=== PATIENT | male | born 1995 | race Asian ===

== ENCOUNTER 2025-03-11 09:34 | Day surgery (SDC) | payer SELFPAY ==
[2025-03-11] VITALS (12 sets, daily range): BP systolic 97–123; BP diastolic 67–96; PULSE 66–80; RESP 16; TEMP 36–37.2; O2SAT 94–98; BMI 28.2
--- NOTE | 2025-03-11 10:15 | CRLHL7_ITS ---
For Patients: As a result of the Cures Act, medical imaging exams and procedure reports are released immediately into your electronic medical record. You may view this report before your referring provider. If you have questions, please contact your health care provider. Indication: Nail gun injury Technique: Three views right knee Comparison: None Findings/Impression: A metal foreign body is present consistent with the given history of nail gun injury. This is within the soft tissues of the right knee anteromedially. Nail extends along the medial border of the patella although without clear intraosseous involvement. Associated mild soft tissue swelling. Dictated by Twin Magaña MD @ 03/11/2025 11:16:25 AM (Electronically Signed)
[2025-03-11] MEDS: CEFAZOLIN 1 GM in 0.9 % SODIUM CHLORIDE Mini-bag 100 ML IVPB (10:27)
[2025-03-11] MEDS: BUPIVACAINE 0.25% 30 ML INJECTION ×2 (10:29→12:32)
--- NOTE | 2025-03-11 11:10 | ED_ITS ---
HPI - General Adult General Date Seen: 03/11/25 Chief complaint: Skin/Abscess/Foreign Body Stated complaint: right leg- shot it with nail gun Time Seen by Provider: 03/11/25 09:53 History of Present Illness HPI narrative: This is a pleasant generally healthy 29-year-old male accompanied to the ER this morning by his co-worker. He has a foreign body (a large nail) in the skin and soft tissue in potentially in the joint space of his right knee. The injury occurred this morning while at work just prior to arrival. He was building some pallets when he had some trouble with the cord on his pneumatic Nailer. He was trying to adjust the cord with and malar accidentally went off and drove a nail into his right knee. He had immediate onset of pain. Ever since then he has had trouble flexing extending his knee. Not much bleeding. He is generally healthy. No history of diabetes or asthma or immunosuppression. He thinks his most recent tetanus shot was perhaps 5 or 10 years ago, but he cannot remember for sure. He is not completely sure he is up today. No other injuries. No numbness or tingling or weakness in his lower leg. No pulsatile bleeding. He last ate a peanut butter jelly sandwich at about 630 this morning, about 4 hours prior to arrival. He drink water at about 730. Related Data Home Medications ?Medication ?Instructions ?Recorded ?Confirmed No Known Home Medications 03/11/2503/02 Allergies Allergy/AdvReac Type Severity Reaction Status Date / Time shellfish derived Allergy Unknown Verified 03/11/25 09:43 [facility] Social History Smoking Status: Former smoker How often do you have a drink containing alcohol: 2-3 times a week How often do you have six or more drinks on one occasion: Never AUDIT-C Alcohol total score: 3 Non-prescribed substance use: denies use Exam Narrative: Exam Narrative: Constitutional: Appears well-developed and well-nourished. Alert. Conversant and he is trying to be positive and joking with his co-worker. He looks very uncomfortable. HENT: Head: Atraumatic. Nose: Nose normal. Mouth/Throat: Oral mucosa is clear and moist. no trismus. Pharynx normal. Eyes: Conjunctivae normal. EOM normal. Pupils equal, round, and reactive to light. No scleral icterus. Neck: Normal range of motion. Neck supple. No tracheal deviation present. Cardiovascular: Normal rate, regular rhythm. No gallop. No friction rub. No murmur heard. Symmetric PT artery pulses Pulmonary/Chest: Effort normal. No stridor. No respiratory distress. No wheezes. No rales. No rhonchi . No tenderness. Abdominal: Soft. No distension. No mass. No tenderness. No rebound. No guarding. Musculoskeletal: RUE: Normal range of motion. No tenderness. No deformity LUE: Normal range of motion. No tenderness. No deformity RLE: On injured except for the right knee. There is a knee present puncture the through the skin of the distal thigh a few cm superior to the patient's patella. The tip of the nail then punctures out where through the skin on the anterior knee which appears to be just lateral to or possibly touching the lateral side of the patella. No active bleeding. This skin is tented at the head of the nail. The knee is flexed at approximately 80-90 degrees. The patient cannot flex or extend it more than fiber 10? from that position. There is some swelling around the knee, in particular around the exit site where the point of the nail is protruding out through the skin. Otherwise no injuries to the right lower extremity. LLE: Normal range of motion. No edema. No tenderness. No deformity Lymph: No cervical adenopathy. Neurological: Alert and oriented to person, place, and time. Normal strength. CN II-VII intact. No sensory deficit. GCS eye subscore is 4. GCS verbal subscore is 5. GCS motor subscore is 6. Normal coordination Skin: Skin is warm and dry. No rash noted. No pallor. Normal capillary refill. Psychiatric: Normal mood. Normal affect. Const: Vital Signs, click to edit/add: Vital Signs - 24 hr 03/11/25 09:41 03/11/25 11:05 Temperature 96.8 F L Pulse Rate [Pulse Oximeter] 80 75 Respiratory Rate 16 16 Blood Pressure [Ri ght Upper Arm] 120/86 106/69 Pulse Oximetry 97 97 Oxygen Delivery Me thod Room Air Room Air Course Vital Signs Vital signs: Initial Vital Signs Temperature 96.8 F L 03/11/25 09:41 Temperature Source Temporal Artery Scan 03/11/25 09:41 Pulse Rate 80 03/11/25 09:41 Respiratory Rate 16 03/11/25 09:41 Blood Pressure 120/86 03/11/25 09:41 Blood Pressure Mean 97 03/11/25 09:41 Blood Pressure Position Supine 03/11/25 09:41 Pulse Oximetry 97 03/11/25 09:41 Oxygen Delivery Method Room Air 03/11/25 09:41 Vital Signs Temperature 96.8 F L 03/11/25 09:41 Pulse Rate 80 03/11/25 09:41 Respiratory Rate 16 03/11/25 09:41 Blood Pressure 120/86 03/11/25 09:41 Pulse Oximetry 97 03/11/25 09:41 Oxygen Delivery Method Room Air 03/11/25 09:41 Temperature 96.8 F L 03/11/25 09:41 Pulse Rate 75 03/11/25 11:05 Respiratory Rate 16 03/11/25 11:05 Blood Pressure 106/69 03/11/25 11:05 Pulse Oximetry 97 03/11/25 11:05 Oxygen Delivery Method Room Air 03/11/25 11:05 Medications Administered Medications: Discontinued Medications Generic Name Dose Route Start Last Admin Trade Name Freq PRN Reason Stop Dose Admin Bupivacaine HCl 30 ml 03/11/25 10:15 03/11/25 10:29 Bupivacaine 0.25% 30 Ml INJECTION 03/11/25 10:16 30 ml ONCE ONE Administration Cefazolin Sodium 1 gm/ Sodium 100 mls @ 200 mls/hr 03/11/25 10:20 03/11/25 11:05 Chloride IVPB 03/11/25 10:49 Infused ONCE ONE Infusion Medical Decision Making [facility] Narrative Medical decision making narrative: Very pleasant 29-year-old gentleman presenting to the ER today with a work related injury. He has a large nail puncture wound in his right anterior distal thigh and knee. He he is hemodynamically stable and neurovascularly intact. IV was established and we gave the patient 1 g of Ancef for antibiotic prophylaxis. He does not have any medical comorbidities such as diabetes which would cause immunosuppression. Since the patient was not certain about his tetanus status his tetanus was updated this morning. X-rays fortunately do not show any sign that this nail has penetrated the femur or tibia and appears to be adjacent to and possibly touching the patella but we do not see any clear patella fracture. Concern here is whether not this nail has violated the knee joint capsule. Based on the position of the nail, I am highly suspicious that it has. When the patient arrived a made contact with my orthopedic colleagues. Initially discussed with Sugey JIMÉNEZ and subsequently with the orthopedic surgeon, Dr. Terry. After evaluating the patient they will take the patient to the OR to pull the nail and do a knee washout. At this point based on the position of the nail and the risk for infection, as well as the discomfort the patient is having, we do think this is a medical emergency that requires going to the OR soon. He did eat (peanut butter and jelly) at about 6:30 a.m., about 4 hours prior to arrival. With reasonable clinical confidence, I think the patient is safe for sedation or anesthesia and that the risks associated with delay in the patient's necessary procedure would outweigh the risks of anesthesia even though he is not NPO for 8 hours. Imaging Data XR right knee: Attestation: I have reviewed the pertinent imaging results. My impression: No visible fracture. Nail is adjacent to the patella. Discharge Plan Discharge Clinical Impression: Foreign body of right knee Prescriptions: No Action No Known Home Medications
--- OUTSIDE RECORDS SUMMARY | 2025-03-11 11:33 | XMS_ITS | Clinical Summary ---
Author Organization [employer] [facility] Address [address] [place] [id number] Care Team Providers Care Concrete Panel Installer Name Role Phone Pcp, No Primary Care Provider Unavailabl e Allergies No known active allergies Medications moxifloxacin (VIGAMOX) 0.5 % ophthalmic solutionIndica tions:Right cornea abrasion, initial encounter Place 1 Drop into right eye 3 times daily. 3 mL 7 Active HYDROcodone-ac etaminophen, 5-325 mg, (NORCO) per tabletIndicati ons:Facial contusion, initial encounter,Medi al orbital wall fracture, closed, initial encounter ([facility]) Take 1 tablet by mouth every 4 hours if needed for Pain Max acetaminophen dose: 4000 mg in 24 hrs. 15 tablet 7 Active Immunizations Immunization Administration Dates Next Due Tdap 01/12/2017 Social History Tobacco Use Types Packs/Day Years Used Date Smoking Tobacco: Former Cigarettes Tobacco Cessation:Counseling Given: Not Answered Comments:e cig Sex and Gender Information Value Date Recorded Sex Assigned at Not on file Legal Sex Male 8:57 PM CDT Gender Identity Not on file Sexual Orientation Not on file Obstetrics History Last Filed Vital Signs Vital Sign Reading Time Taken Comments Blood Pressure 123/78 07/11/2023 4:23 PM CDT Pulse 72 07/11/2023 4:23 PM CDT Temperature 37.1 C (98.8 F) 07/11/2023 4:23 PM CDT Respiratory Rate 16 01/12/2017 9:08 PM CDT Oxygen Saturation 96% 07/11/2023 4:23 PM CDT Inhaled Oxygen Concentration - - Weight 81.6 kg (180 lb) 01/12/2017 9:08 PM CDT Height - - Body Mass Index - - Plan of Treatment Health Maintenance Due Date Last Done Comments Depression screening for age 12+ 2007 BMI (ht and wt on same day) for age 18+ 2013 Hepatitis C screening for ag e 18-79 2013 Hepatitis B series for 19+ ( 1 of 3 - 19+ 3-dose series) 2014 COVID-19 vaccine series ( - season) 2024 Influenza Vaccine (Season Ended) 2025 Tetanus booster 01/12/2027 01/12/2017 Tdap Completed 01/12/2017 HIV for age 15-65 Completed 07/11/2023 Pneumococcal series for age 6-49 Aged Out No longer eligible based on patient's age to complete this topic Procedures Procedure Name Priority Date/Time Associated Diagnosis Comments ANTI HIV 1/2 STAT 07/11/2023 4:51 PM CDT STD exposure from Last 3 Months or Most Recently Relevant to Health Maintenance Results * ANTI HIV 1/2 (07/11/2023 4:51 PM CDT) HIV-1/HIV-2 SCREEN Non-Reacti ve Non-Reacti ve 07/12/2023 7:[address] [facility] Comment:HIV-1 p24 and HIV-1/ HIV-2 Ab Not Detected. Blood BLOOD SPECIMEN / Unknown Venipuncture / Unknown 07/11/2023 4:51 PM CDT 07/11/2023 4:55 PM CDT us Peggy Castellon NP SEND OUTS Fin al Result [facility] [address] [place] [address], [place] from Last 3 Months or Most Recently Relevant to Health Maintenance Insurance [facility] Care Teams Concrete Panel Installer Relationship Specialty Start Date End Date Pcp, No . PCP - General 02/10/21
--- OUTSIDE RECORDS SUMMARY | 2025-03-11 11:33 | XMS_ITS | Clinical Summary ---
Author Organization [facility] Address [address] [place] [id number] Care Team Providers Care Head Batcher Name Role Phone No Ref-Primary, Physician Primary Care Provider Allergies No known active allergies Medications EPINEPHrine (ANY BX GENERIC EQUIV) 0.3 MG/0.3ML injection 2-pack Inject 0.3 mLs (0.3 mg) into the muscle once as needed for anaphylaxis 1 each 0 Active Immunizations Immunization Administration Dates Next Due DTAP (<7y) 02/23/2000, 7,02/01/1996,1995, 1995 HIB (PRP-T) 10/23/1996,02/01/1996,1995 ,1995 HepB 02/01/1996,1995,1995 Influenza (IIV3) PF 08/12/2008 MMR (MMRII) 02/23/2000,09/27/1996 Meningococcal ACWY (Menactra ) 08/12/2008 OPV, trivalent, live 02/23/2000,02/01/1996,10/12,1995 TDAP Vaccine (Boostrix) 08/12/2008 Varicella (Varivax) 08/08/2007,02/23/2000 Family History Medical History Relation Comments Thyroid Disease No family hx of Social History Tobacco Use Types Packs/Day Years Used Date Smoking Tobacco: Every Day Smokeless Tobacco: Never Comments:vapes Alcohol Use Standard Drinks/Week Comments Not Asked 0 (1 standard drink = 0.6 oz pur e alcohol) occasionally Sex and Gender Information Value Date Recorded Sex Assigned at Not on file 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 Gender Identity Not on file Sexual Orientation Not on file Last Filed Vital Signs Vital Sign Reading Time Taken Comments Blood Pressure 127/99 12/27/2019 12:00 AM CDT Pulse - - Temperature 36.7 C (98 F) 12/26/2019 11:49 PM CDT Respiratory Rate 16 12/27/2019 2:12 AM CDT Oxygen Saturation 98% 12/27/2019 1:50 AM CDT Inhaled Oxygen Concentration - - Weight 83.9 kg (185 lb) 12/26/2019 11:49 PM CDT Height 167.6 cm (5' 6) 12/26/2019 11:49 PM CDT Body Mass Index 29.86 12/26/2019 11:49 PM CDT Plan of Treatment Not on file [place] Care Teams Head Batcher Relationship Specialty Start Date End Date No Ref-Primary, Physician PCP - General 12/27/19
[2025-03-11] MEDS: LACTATED RINGERS 1000 ML 1,000 ML 100 ML IV (11:53)
--- NOTE | 2025-03-11 12:02 | P.ANES_ITS ---
Anesthesia Charges Start Date/Time Anesthesia Start Date: 03/11/25 Anesthesia Start Time: 11:53 Stop Date/Time Anesthesia Stop Date: 03/11/25 Anesthesia Stop Time: 12:45 Summary Emergency: CANDIDA Coding CPT Codes CPT Codes: ANESTH KNEE JOINT SURGERY - 79454 ([id number]) P2 - PATIENT W/MILD SYST DISEASE, QK - RN BONE MARROW TRANSPLANT 2-4 CNCRNT ANES PROC, QX - CHEF DE CUISINE SVC W/ MD MED DIRECTION Additional Codes: Summary - Emergency: C[facility]IDA ([id number])
--- NOTE | 2025-03-11 12:02 | W.ANESCHARGE ---
Anesthesia Charges Start Date/Time Anesthesia Start Date: 03/11/25 Anesthesia Start Time: 11:53 Stop Date/Time Anesthesia Stop Date: 03/11/25 Anesthesia Stop Time: 12:45 Summary Emergency: C[facility]IDA Coding CPT Codes CPT Codes: ANESTH KNEE JOINT SURGERY - 40595 ([id number]) P2 - PATIENT W/MILD SYST DISEASE, QK - PERSONNEL AND PAYROLL TECHNICIAN 2-4 CNCRNT ANES PROC, QX - LANGUAGE THERAPIST SVC W/ MD MED DIRECTION Additional Codes: Summary - Emergency: CANDIDA ([id number])
--- NOTE | 2025-03-11 12:37 | CRLHL7_ITS ---
For Patients: As a result of the Cures Act, medical imaging exams and procedure reports are released immediately into your electronic medical record. You may view this report before your referring provider. If you have questions, please contact your health care provider. Indication: Post op foreign body removal Technique: Portable postop two views right knee Comparison: 03/11/2025 IMPRESSION: Removal of nail. Soft tissue gas noted. No fracture. Dictated by Rory Eugene MD @ 03/12/2025 6:45:58 AM (Electronically Signed)
--- NOTE | 2025-03-11 12:39 | PM.ORCN ---
History of Present Illness HPI Date Seen: 03/11/25 Chief complaint: right leg- shot it with nail gun Narrative: The patient is a 29-year-old who sustained a nail gun injury to the right knee. He was building a Pallet and the nail gun hose was caught on something. He pulled it with his arm and lifted it with his leg. His knee impacted the gun went off, into his knee. He does not have diabetes, does not smoke cigarettes and is not on blood thinners. Review of Systems Narrative: The patient denies: Fever, night sweats, shaking chills, nausea, vomiting, diarrhea, chest pain, chest pressure, shortness of breath, no rash, no change in hearing or vision, no issues with bleeding or clotting PFSH PFSH Social History Smoking Status: Former smoker How often do you have a drink containing alcohol: 2-3 times a week How often do you have six or more drinks on one occasion: Never AUDIT-C Alcohol total score: 3 Non-prescribed substance use: denies use Meds Home Medications and Allergies Home Medications ?Medication ?Instructions ?Recorded ?Confirmed ?Type cephalexin 500 mg capsule 500 mg PO QID #28 caps 03/11/25 Rx Allergies Allergy/AdvReac Type Severity Reaction Status Date / Time shellfish derived Allergy Unknown Verified 03/11/25 09:43 Ortho Exam Narrative Exam Narrative: The patient is examined seated in the emergency department, hospital cart. The pants leg of his right lower extremity has been cut off, above the knee. There is a nail imbedded in the knee from proximal to distal, just medial to the patella. The tip of the nail is sticking out distally, the head is proximal, pinning the skin and soft tissues deep, but still exposed. CMS is intact. Const Vital Signs, click to edit/add: Vital Signs - 24 hr 03/11/25 09:41 03/11/25 11:05 Temperature 96.8 F L Pulse Rate [Pulse Oximeter] 80 75 Respiratory Rate 16 16 Blood Pressure [Right Upper Arm] 120/86 106/69 Pulse Oximetry 97 97 Oxygen Delivery Method Room Air Room Air Results Diagnostic results Additional Comments: In the AP, lateral and a single patellofemoral axial view of the right knee are reviewed. These show nail missed distal femur, proximal tibia and patella. Assessment and Plan Assessment and plan (1) Foreign body of right knee: Status: Acute Plan Assessment: Right knee foreign body Plan: I told Alex that we should assume that the nail is within his knee joint. Therefore, I think we should remove it in the operating room and plan to do an arthroscopic irrigation and debridement of his knee joint. He agrees and wishes to proceed.
--- NOTE | 2025-03-11 12:43 | P.ORPRC_ITS ---
Procedure Note Date of procedure: 03/11/25 Procedure: PREOPERATIVE DIAGNOSIS: Right knee foreign body POSTOPERATIVE DIAGNOSIS: Right knee foreign body NAME OF OPERATION: Right knee foreign body removal, arthroscopic irrigation and debridement SURGEON: Sammy Terry MD SUPPLY CHAIN PROJECT MANAGER: Emily Sanchez PA-C ANESTHESIA: General ESTIMATED BLOOD LOSS: 0 mL COMPLICATIONS: None SPECIMENS: None DRAINS: None PREOPERATIVE ANTIBIOTICS: Ancef 2 gram INDICATIONS: The patient is a 29-year-old with a history of right knee injury with a nail gun. The nail is retained within the soft tissues, just medial to the patella. It is presumed to have traversed the knee joint. Operative intervention was recommended. The risks, benefits and expected outcomes were discussed in detail. These included but were not limited to: Infection, bleeding, injury to blood vessel or nerve, venous thromboembolism. All questions were answered to their satisfaction. PROCEDURE: Patient is placed supine on the operating room table. General anesthesia was administered. The right lower extremity was prepped and draped in the usual sterile fashion. The limb was exsanguinated with the Joshua bandage. The pneumatic tourniquet was inflated to 225 mmHg. A standard anterolateral portal was established. The arthroscope was introduced. Diagnostic arthroscopy was performed with findings as follows: The suprapatellar pouch is normal. Articular surface on the patella is normal. Articular surface on the trochlea is normal. The medial gutter is normal. The medial compartment shows normal articular cartilage on the medial femoral condyle and medial tibial plateau. The medial meniscus is normal. The notch shows the ACL to be intact. The lateral compartment shows normal articular cartilage on the lateral femoral condyle and lateral tibial plateau. The lateral meniscus is normal. The lateral gutter is normal. The nail is nowhere within the knee joint. Head of the nail was grasped with a pliers and it was removed uneventfully. We irrigated the entry and exit wound with normal saline on a syringe. The arthroscope was reintroduced into the joint and it was flushed again. There was no arthroscopic fluid exiting entry or exit sites. Arthroscopic instruments were removed, the portal site and the traumatic wounds were Steri-Stripped closed, they were infiltrated with 30 mL of 0.25% Marcaine without epinephrine. A dry dressing was applied, the tourniquet was released. Sponge and needle counts were correct x 2. The patient tolerated the procedure well. There were no apparent complications. They were carefully transferred to the hospital bed and taken to the post anesthesia care unit in satisfactory condition. PLAN: The patient will be discharged to home. They may weightbear as tolerates. Range of motion will be unrestricted. They will follow up in the o ffice next week for a wound check.
--- NOTE | 2025-03-11 12:45 | P.ANES_ITS ---
Anesthesia Charges Start Date/Time Anesthesia Start Date: 03/11/25 Anesthesia Start Time: 11:53 Stop Date/Time Anesthesia Stop Date: 03/11/25 Anesthesia Stop Time: 12:45 Summary Emergency: BONE PULLER Coding CPT Codes CPT Codes: ANESTH KNEE JOINT SURGERY - 77870 ([id number]) P2 - PATIENT W/MILD SYST DISEASE, QK - LEAD WEB DEVELOPER 2-4 CNCRNT ANES PROC, QX - BONE PULLER SVC W/ MD MED DIRECTION Additional Codes: Summary - Emergency: BONE PULLER ([id number])
--- NOTE | 2025-03-11 12:45 | W.ANESCHARGE ---
Anesthesia Charges Start Date/Time Anesthesia Start Date: 03/11/25 Anesthesia Start Time: 11:53 Stop Date/Time Anesthesia Stop Date: 03/11/25 Anesthesia Stop Time: 12:45 Summary Emergency: VENDING MACHINE HOST/HOSTESS Coding CPT Codes CPT Codes: ANESTH KNEE JOINT SURGERY - 20970 ([id number]) P2 - PATIENT W/MILD SYST DISEASE, QK - RESEARCH DIRECTOR 2-4 CNCRNT ANES PROC, QX - VENDING MACHINE HOST/HOSTESS SVC W/ MD MED DIRECTION Additional Codes: Summary - Emergency: VENDING MACHINE HOST/HOSTESS ([id number])
[2025-03-11] MEDS: fentaNYL 100 MCG/2 ML inj 50 MCG IVP (12:55)
== END 2025-03-11 14:36 | disposition home or self-care (01) ==
LOC: ED 11:32 → SS 12:11
PROVIDERS: Emergency Provider Emergency Medicine; Visit Provider Orthopaedic Surgery
PROC: (CPT 29870; principal; 2025-03-11 11:50)
DX: S81.041A Puncture wound with foreign body, right knee, initial encounter (principal); W29.4XXA Contact with nail gun, initial encounter; Y93.H3 Activity, building and construction; Y92.69 Other specified industrial and construction area as the place of occurrence of the external cause; Y99.0 Civilian activity done for income or pay
CPT/HCPCS: 29871; 01400; 73560; 73562; 99140; 99283; 99284; 99285; J0330; J0665; J0690; J1100; J2250; J2405; J2704; J3010; J3490; J7120